=== PATIENT | male | born 1965 | race Caucasian/White ===

== ENCOUNTER 2018-06-11 17:07 | Emergency (ER) | payer SELFPAY ==
--- NOTE | 2018-06-11 18:30 | RAD REPORT ---
EXAM DESCRIPTION: CT - Stone Protocol - 06/11/2018 6:10 pm CLINICAL HISTORY: Fall, abdominal pain, left flank pain COMPARISON: None. TECHNIQUE: Axial [address] imaging of the abdomen and pelvis was performed without IV contrast. No IV contrast was given because of allergy, abnormal renal function, patient refusal or physician re quest. Oral contrast was given. All CT scans are performed using dose optimization technique as appropriate and may include automated exposure control or mA/KV adjustment according to patient size. FINDINGS: No suspicious findings in the lung bases. No pericardial thickening or effusion. The liver, spleen and pancreas show no suspicious findings on non-contrast imaging. Gallbladder is co ntracted. No biliary tree dilatation. No hydronephrosis or suspicious renal mass. No significant adrenal finding. Isodense renal masses an d pyelonephritis cannot be excluded in the absence of IV contrast. The urinary bladder is without sig nificant finding. No dilated bowel loops or bowel wall thickening. No free air, free fluid or inflammatory stranding. N o mass or bulky lymphadenopathy. Left inguinal hernia is present containing a loop of bowel. No edema or wall thickening. There is a bulging of the right inguinal canal with bowel present. No hernia def ect is seen. No suspicious bony findings. No significant bony abnormality. IMPRESSION: Non-contrast enhanced CT abdomen and pelvis imaging show no acute posttraumatic finding. Left inguinal hernia is present containing a loop of bowel. No acute finding suspected. Full assessment is limited is the absence of IV contrast.
[2018-06-11 18:54] LABS: Urine Bacteria <20 /HPF (NONE SEEN)
[2018-06-11 18:55] LABS: Urine Culture Reflex Order NOT NEEDED; Urine Mucus 1+ /HPF (NONE SEEN)
[2018-06-11 18:55] LABS: Urine Blood 2+ (NEG); Urine Glucose NEGATIVE (NEG); Urine Protein NEGATIVE (NEG); Urine Specific Gravity 1.025 (1.005-1.030); Urine pH 5.5 (5.0-7.0)
--- NOTE | 2018-06-11 20:40 | RAD REPORT ---
EXAM DESCRIPTION: CT - Abdomen Pelvis W Contrast - 06/11/2018 8:11 pm CLINICAL HISTORY: Fall, left-sided abdomen and flank pain COMPARISON: None. TECHNIQUE: Biphasic, helical CT imaging of the abdomen and pelvis was performed following 100 ml non -ionic IV contrast. Oral contrast was given. All CT scans are performed using dose optimization technique as appropriate and may include automated exposure control or mA/KV adjustment according to patient size. FINDINGS: No suspicious findings in the lung bases. No pericardial effusion. No acute lower rib frac ture. The liver, spleen, and pancreas show no suspicious findings. Gallbladder and biliary tree are also wi thout suspicious finding. Symmetric renal function is seen with no hydronephrosis or suspicious renal mass. No acute renal or p erinephric abnormality. No dilated bowel loops or bowel wall thickening. No free air, free fluid or inflammatory stranding. No change to the left inguinal hernia. There is a loop of small bowel present. No acute component wills spected. The urinary bladder is without significant finding. No adrenal abnormality. No hematoma or m ass in the soft tissues. No suspicious bony findings. IMPRESSION: Contrast enhanced CT abdomen and pelvis showing no significant or suspicious finding. N o new finding from prior study.
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
--- NOTE | 2018-06-11 21:22 | EDPHYS ---
Physician Documentation [facility] Name: Alexx De Leon Age: 53 yrs Sex: Male : 1965 Arrival Date: 06/11/2018 Time: 17:08 Bed 25 Private MD: None, None ED Physician Jm Lawrence HPI: 06/11 21:26 This 53 yrs old Male presents to ER via Ambulatory with complaints of Fall gs Injury. 21:26 Details of fall: The patient fell from a height, down approximately 8 stairs. Onset: gs The symptoms/episode began/occurred acutely, 2 day(s) ago. Associated injuries: The patient sustained injury to the abdomen, specifically the anterior aspect of left lateral abdomen and posterior aspect of left lateral abdomen. Severity of symptoms: At their worst the symptoms were moderate, in the emergency department the symptoms are unchanged. The patient has not experienced similar symptoms in the past. Historical: - Allergies: 17:14 No Known Allergies; hj - Home Meds: 17:14 None [Active]; hj - PMHx: 17:14 None; hj - PSHx: 17:14 None; hj - Immunization history:: Adult Immunizations up to date. - Social history:: Smoking status: Patient/guardian denies using tobacco, Patient/guardian denies using alcohol. - Ebola Screening: : Patient negative for fever greater than or equal to 101.5 degrees Fahrenheit, and additional compatible Ebola Virus Disease symptoms Patient denies exposure to infectious person Patient denies travel to an Ebola-affected area in the 21 days before illness onset. ROS: 21:26 All other systems are negative. gs Exam: 21:26 Head/Face: Normocephalic, atraumatic. Eyes: Pupils equal round and reactive to light, gs extra-ocular motions intact. Lids and lashes normal. Conjunctiva and sclera are non-icteric and not injected. Cornea within normal limits. Periorbital areas with no swelling, redness, or edema. ENT: Nares patent. No nasal discharge, no septal abnormalities noted. Tympanic membranes are normal and external auditory canals are clear. Oropharynx with no redness, swelling, or masses, exudates, or evidence of obstruction, uvula midline. Mucous membranes moist. Neck: Trachea midline, no thyromegaly or masses palpated, and no cervical lymphadenopathy. Supple, full range of motion without nuchal rigidity, or vertebral point tenderness. No Meningismus. Chest/axilla: Normal chest wall appearance and motion. Nontender with no deformity. No lesions are appreciated. Cardiovascular: Regular rate and rhythm with a normal S1 and S2. No gallops, murmurs, or rubs. Normal PMI, no JVD. No pulse deficits. Respiratory: Lungs have equal breath sounds bilaterally, clear to auscultation and percussion. No rales, rhonchi or wheezes noted. No increased work of breathing, no retractions or nasal flaring. Abdomen/GI: Soft, non-tender, with normal bowel sounds. No distension or tympany. No guarding or rebound. No evidence of tenderness throughout. Skin: Warm, dry with normal turgor. Normal color with no rashes, no lesions, and no evidence of cellulitis. MS/ Extremity: Pulses equal, no cyanosis. Neurovascular intact. Full, normal range of motion. Neuro: Awake and alert, GCS 15, oriented to person, place, time, and situation. Cranial nerves II-XII grossly intact. Motor strength 5/5 in all extremities. Sensory grossly intact. Cerebellar exam normal. Normal gait. 21:26 Constitutional: The patient appears alert, awake. 21:26 Back: CVA tenderness, that is moderate, is noted on the left, vertebral tenderness, is not appreciated. Vital Signs: 17:15 BP 124 / 90; Pulse 84; Resp 18; Temp 98.8(O); Pulse Ox 97% on R/A; Weight 68.04 kg; hj Height 5 ft. 10 in. (177.80 cm); Pain 7/10; 18:13 BP 131 / 89; Pulse 88; Resp 18; Pulse Ox 97% on R/A; aj1 21:07 BP 123 / 88 RA; Pulse 81 MON; Resp 16 S; Pulse Ox 97% on R/A; rv 17:15 Body Mass Index 21.52 (68.04 kg, 177.80 cm) MDM: 17:37 Patient medically screened. gs 21:26 Differential diagnosis: contusion, fracture, renal injury. Data reviewed: vital signs, gs nurses notes, lab test result(s), radiologic studies. Counseling: I had a detailed discussion with the patient and/or guardian regarding: the historical points, exam findings, and any diagnostic results supporting the discharge/admit diagnosis, lab results, radiology results, the need for outpatient follow up, a urologist. Response to treatment: the patient's symptoms have markedly improved after treatment. 06/11 18:30 Order name: Urine Microscopic Only; Complete Time: 18:58 iw 06/11 18:33 Order name: Urine Dipstick--Ancillary (enter results); Complete Time: 18:58 eb 06/11 17:38 Order name: CT Stone Protocol; Complete Time: 18:41 gs 06/11 18:59 Order name: Creatinine for Radiology; Complete Time: 20:26 gs 06/11 18:59 Order name: CT Abd/Pelvis - W/Contrast; Complete Time: 21:20 gs Administered Medications: No medications were administered Disposition: 06/11/18 21:21 Discharged to Home. Impression: Abdominal and pelvic pain, Hematuria. - Condition is Stable. - Discharge Instructions: Hematuria, Adult, Abdominal Pain, Adult, [id number]. - Medication Reconciliation Form, Thank You Letter, Antibiotic Education, Prescription Opioid Use form. - Follow up: Shayne Madison MD; When: 2 - 3 days; Reason: Re-evaluation by your physician. Signatures: Dispatcher [employer] EDMS Efraín Phelps RN RN Jm Lawrence MD MD Karely Henderson RN RN kr2 Corrections: (The following items were deleted from the chart) 21:32 21:21 06/11/2018 21:21 Discharged to Home. Impression: Abdominal and pelvic pain; kr2 Hematuria. Condition is Stable. Forms are Medication Reconciliation Form, Thank You Letter, Antibiotic Education, Prescription Opioid Use. Follow up: Shayne Madison; When: 2 - 3 days; Reason: Re-evaluation by your physician. gs
== END 2018-06-11 21:32 | disposition home or self-care (01) ==
LOC: ER 17:07
DX: R31.9 Hematuria, unspecified (principal); W10.9XXA Fall (on) (from) unspecified stairs and steps, initial encounter; Y93.9 Activity, unspecified; Y92.9 Unspecified place or not applicable
CPT/HCPCS: 36415; 74176; 74177; 76377; 81003; 81015; 99284; Q9967

== ENCOUNTER 2018-09-11 12:18 | Emergency (ER) | payer SELFPAY ==
[2018-09-11] MEDS ORDERED: NEOMY/POLY/HC 1% OTIC DROPS ONE (15:39)
--- NOTE | 2018-09-11 16:06 | ER ---
Nurse's Notes [facility] Name: Alexx De Leon Age: 53 yrs Sex: Male : 1965 Arrival Date: 09/11/2018 Time: 12:19 Bed 12 Private MD: Diagnosis: Impacted cerumen, bilateral Presentation: 09/11 12:33 Presenting complaint: Decreased hearing in left ear x 1 week. Denies pain/sinus hb congestion. Transition of care: patient was not received from another setting of care. Onset of symptoms was September 04, 2018. Risk Assessment: Do you want to hurt yourself or someone else? Patient reports no desire to harm self or others. Care prior to arrival: None. 12:33 Method Of Arrival: Ambulatory hb 12:33 Acuity: TERESA 4 hb 16:19 Initial Sepsis Screen: Does the patient meet any 2 criteria? No. Patient's initial aa5 sepsis screen is negative. Does the patient have a suspected source of infection? No. Patient's initial sepsis screen is negative. Historical: - Allergies: 12:34 No Known Allergies; hb - Home Meds: 12:34 None [Active]; hb - PMHx: 12:34 None; hb - PSHx: 12:34 None; hb - Immunization history:: Adult Immunizations up to date. - Social history:: Smoking status: Patient/guardian denies using tobacco. - Ebola Screening: : No symptoms or risks identified at this time. Screenin:06 Abuse screen: Denies threats or abuse. Denies injuries from another. Nutritional mg2 screening: No deficits noted. Tuberculosis screening: No symptoms or risk factors identified. Fall Risk None identified. Assessment: 16:17 General: Appears in no apparent distress. comfortable, Behavior is calm, cooperative. aa5 Pain: Complains of pain in left ear. Neuro: Level of Consciousness is awake, alert, obeys commands, Oriented to person, place, time, situation. Cardiovascular: Capillary refill < 3 seconds Patient's skin is warm and dry. Respiratory: Airway is patent Breath sounds are clear. GI: No signs and/or symptoms were reported involving the gastrointestinal system. : No signs and/or symptoms were reported regarding the genitourinary system. EENT: Ear canal w/ drainage noted from left ear w/ bleeding noted from left ear. Derm: Skin is intact, is healthy with good turgor, Skin is pink, warm \T\ dry. normal. Musculoskeletal: No deficits noted. Vital Signs: 12:33 BP 107 / 71; Pulse 61; Resp 16; Temp 97.6; Pulse Ox 100% on R/A; Pain 0/10; hb 16:18 BP 110 / 70; Pulse 70; Resp 18; Pulse Ox 100% on R/A; Pain 2/10; aa5 ED Course: 12:19 Patient arrived in ED. as 12:33 Triage completed. hb 12:34 Arm band placed on right wrist. hb 13:02 Scottie Cruz MD is Attending Physician. ma2 14:58 Vasu Mota, CHAZ is Primary Nurse. mg2 15:06 Cat Nino FNP-C is PHCP. snw 15:06 Ben Mejia MD is Attending Physician. snw 16:18 No provider procedures requiring assistance completed. Patient did not have IV access aa5 during this emergency room visit. Ear irrigation: Route left ear with Normal Saline amount 250ml Patient tolerated well. 16:19 Patient has correct armband on for positive identification. aa5 Administered Medications: 15:52 Drug: Cortisporin Drops 4 drops Route: Otic; Site: left ear; mg2 16:17 Follow up: Response: No adverse reaction aa5 Outcome: 16:06 Discharge ordered by . snw 16:18 Discharged to home ambulatory. aa5 16:18 Condition: stable 16:18 Discharge instructions given to patient, Instructed on discharge instructions, follow up and referral plans. Demonstrated understanding of instructions, follow-up care. 16:19 Patient left the ED. aa5 Signatures: Cat Nino FNP-C OCCUPATIONAL THERAPY ASSISTANT-Leah Mota as Yamileth Thapa RN RN aa5 Susan Marquez RN RN Scottie Cruz MD MD ma2 Vasu Mota, CHAZ RN mg2 Corrections: (The following items were deleted from the chart) 13:03 13:00 Yamileth Thapa RN is Primary Nurse. aa5 aa5
--- NOTE | 2018-09-11 16:06 | EDPHYS ---
Physician Documentation [facility] Name: Alexx De Leon Age: 53 yrs Sex: Male : 1965 Arrival Date: 09/11/2018 Time: 12:19 Bed 12 Private MD: ED Physician Ben Mejia HPI: 09/11 16:04 This 53 yrs old Male presents to ER via Ambulatory with complaints of Ear snw Pain. 16:04 The patient presents with a foreign body sensation, a fullness. The complaints affect snw the left ear. Onset: The symptoms/episode began/occurred gradually. Associated signs and symptoms: The patient has no apparent associated signs or symptoms. Severity of symptoms: At their worst the symptoms were moderate severe. It is unknown whether or not the patient has had similar symptoms in the past. The patient has not recently seen a physician. used a whole bottle of ear wax softener. Historical: - Allergies: 12:34 No Known Allergies; hb - Home Meds: 12:34 None [Active]; hb - PMHx: 12:34 None; hb - PSHx: 12:34 None; hb - Immunization history:: Adult Immunizations up to date. - Social history:: Smoking status: Patient/guardian denies using tobacco. - Ebola Screening: : No symptoms or risks identified at this time. ROS: 16:03 Constitutional: Negative for fever, chills, and weight loss, Eyes: Negative for injury, snw pain, redness, and discharge, Neck: Negative for injury, pain, and swelling, Cardiovascular: Negative for chest pain, palpitations, and edema, Respiratory: Negative for shortness of breath, cough, wheezing, and pleuritic chest pain, Abdomen/GI: Negative for abdominal pain, nausea, vomiting, diarrhea, and constipation, Back: Negative for injury and pain, : Negative for injury, bleeding, discharge, and swelling, MS/Extremity: Negative for injury and deformity, Skin: Negative for injury, rash, and discoloration, Neuro: Negative for headache, weakness, numbness, tingling, and seizure. 16:03 ENT: Positive for hearing loss, cerumen impaction. Exam: 16:03 Constitutional: This is a well developed, well nourished patient who is awake, alert, snw and in no acute distress. Head/Face: Normocephalic, atraumatic. Eyes: Pupils equal round and reactive to light, extra-ocular motions intact. Lids and lashes normal. Conjunctiva and sclera are non-icteric and not injected. Cornea within normal limits. Periorbital areas with no swelling, redness, or edema. Neck: Trachea midline, no thyromegaly or masses palpated, and no cervical lymphadenopathy. Supple, full range of motion without nuchal rigidity, or vertebral point tenderness. No Meningismus. Chest/axilla: Normal chest wall appearance and motion. Nontender with no deformity. No lesions are appreciated. Cardiovascular: Regular rate and rhythm with a normal S1 and S2. No gallops, murmurs, or rubs. Normal PMI, no JVD. No pulse deficits. Respiratory: Lungs have equal breath sounds bilaterally, clear to auscultation and percussion. No rales, rhonchi or wheezes noted. No increased work of breathing, no retractions or nasal flaring. Abdomen/GI: Soft, non-tender, with normal bowel sounds. No distension or tympany. No guarding or rebound. No evidence of tenderness throughout. Back: No spinal tenderness. No costovertebral tenderness. Full range of motion. Skin: Warm, dry with normal turgor. Normal color with no rashes, no lesions, and no evidence of cellulitis. MS/ Extremity: Pulses equal, no cyanosis. Neurovascular intact. Full, normal range of motion. Neuro: Awake and alert, GCS 15, oriented to person, place, time, and situation. Cranial nerves II-XII grossly intact. Motor strength 5/5 in all extremities. Sensory grossly intact. Cerebellar exam normal. Normal gait. Psych: Awake, alert, with orientation to person, place and time. Behavior, mood, and affect are within normal limits. 16:03 ENT: External ear(s): are unremarkable, Ear canal(s): cerumen impaction, that is moderate, that is severe, bilaterally, TM's: not visable, because of cerumen, Nose: is normal, Mouth: is normal, Posterior pharynx: no acute changes, Dental exam: fractured teeth are noted, specifically the upper right lateral incisor (#7) and upper right central incisor (#8), Voice: is normal. Vital Signs: 12:33 BP 107 / 71; Pulse 61; Resp 16; Temp 97.6; Pulse Ox 100% on R/A; Pain 0/10; hb 16:18 BP 110 / 70; Pulse 70; Resp 18; Pulse Ox 100% on R/A; Pain 2/10; aa5 MDM: 13:02 Patient medically screened. ma2 16:15 Data reviewed: vital signs, nurses notes. Data interpreted: Pulse oximetry: on room air snw is 100 %. Interpretation: normal. Counseling: I had a detailed discussion with the patient and/or guardian regarding: the historical points, exam findings, and any diagnostic results supporting the discharge/admit diagnosis. Response to treatment: the patient's symptoms have mildly improved after treatment. Special discussion: Based on the history and exam findings, there is no indication for further emergent testing or inpatient evaluation. I discussed with the patient/guardian the need to see the ENT specialist for further evaluation of the symptoms. I discussed with the patient/guardian the need to see the primary care provider for further evaluation of the symptoms. 09/11 15:23 Order name: [facility]. Order: H2O2 to left ear canal x 10min; Complete Time: 15:52 snw Administered Medications: 15:52 Drug: Cortisporin Drops 4 drops Route: Otic; Site: left ear; mg2 16:17 Follow up: Response: No adverse reaction aa5 Disposition: 18:02 Co-signature as Attending Physician, Ben Mejia MD. rn Disposition: 09/11/18 16:06 Discharged to Home. Impression: Impacted cerumen, bilateral. - Condition is Stable. - Discharge Instructions: Earwax Buildup, Adult, Ear Drops, Adult. - Medication Reconciliation Form, Thank You Letter, Antibiotic Education, Prescription Opioid Use form. - Follow up: Private Physician; When: 2 - 3 days; Reason: Recheck today's complaints, Continuance of care, Re-evaluation by your physician. Follow up: Emergency Department; When: As needed; Reason: Worsening of condition. Signatures: Cat Nino, SPECIAL EDUCATION ASSOCIATE-C SPECIAL EDUCATION ASSOCIATE-Csnw Ben Mejia MD MD rn Calderon, Audri, RN RN aa5 Susan Marquez RN RN Scottie Cruz MD MD ma2 Vasu Mota RN RN mg2 Corrections: (The following items were deleted from the chart) 16:19 16:06 09/11/2018 16:06 Discharged to Home. Impression: Impacted cerumen, bilateral. aa5 Condition is Stable. Forms are Medication Reconciliation Form, Thank You Letter, Antibiotic Education, Prescription Opioid Use. Follow up: Private Physician; When: 2 - 3 days; Reason: Recheck today's complaints, Continuance of care, Re-evaluation by your physician. Follow up: Emergency Department; When: As needed; Reason: Worsening of condition. snw
== END 2018-09-11 16:19 | disposition home or self-care (01) ==
LOC: ER 12:18
DX: H61.23 Impacted cerumen, bilateral (principal)
CPT/HCPCS: 99283

== ENCOUNTER 2021-08-01 15:14 | Emergency (ER) | payer SELFPAY ==
[2021-08-01] MEDS ORDERED: HYDROCODONE/APAP 10/325 TAB ONE (17:57)
[2021-08-01 18:16] LABS: Absolute Lymphocytes (CBC) 1.5 K/uL (0.7-4.9); Hematocrit 48.6 % (39.6-49.0); Lymphocytes % 21.3 % (15.3-44.8); RBC Red Blood Cell Count 5.18 M/uL (4.33-5.43)
[2021-08-01 18:28] LABS: ALT/SGPT 39 U/L (12-78); AST/SGOT 43 U/L (15-37); Albumin 4.2 g/dL (3.4-5.0); Alkaline Phosphatase 119 U/L (45-117); BUN Blood Urea Nitrogen 12 mg/dL (7-18); Bicarbonate 27 mmol/L (21-32); Glucose Level 98 mg/dL (74-106); Potassium 3.9 mmol/L (3.5-5.1); Protein, Total 7.7 g/dL (6.4-8.2); Sodium Level 138 mmol/L (136-145)
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
== END 2021-08-01 19:39 | disposition home or self-care (01) ==
LOC: ER 15:14
DX: S22.32XA Fracture of one rib, left side, initial encounter for closed fracture (principal); V18.4XXA Pedal cycle driver injured in noncollision transport accident in traffic accident, initial encounter; F17.210 Nicotine dependence, cigarettes, uncomplicated
CPT/HCPCS: 36415; 71260; 74177; 80053; 82565; 85025; 99283; Q9967

== ENCOUNTER 2022-03-23 19:05 | Emergency (ER) | payer SELFPAY ==
--- OUTSIDE RECORDS SUMMARY | 2022-03-23 19:12 | XMS REPORT | Continuity of Care Document ---
:1965 Author Organization [facility] t Address [address] [place] [address] Care Team Providers Name Role Phone Unavailable Unavailable Unavailable Problems This patient has no known problems. Allergies, Adverse Reactions, Alerts This patient has no known allergies or adverse reactions. Medications This patient has no known medications. Procedures This patient has no known procedures. Encounters Start End Encounter Admission Attending Care Care Encounter Source Date/Time Date/Time Type Type Clinicians Facility Department ID 2021-09-25 Outpatient [facility] [id number] [place] 05:06:55 [id number] [facility] Results This patient has no known results.
--- NOTE | 2022-03-23 19:47 | EDPHYS ---
Physician Documentation [facility] Name: Alexx De Leon Age: 57 yrs Sex: Male : 1965 Arrival Date: 03/23/2022 Time: 19:09 Bed Treatment Private MD: ED Physician Chinmay Palomo HPI: 03/23 19:43 This 57 yrs old Male presents to ER via Ambulatory with complaints of Rash. jmm 19:43 The rash is located on the body diffusely. Onset: The symptoms/episode began/occurred jmm gradually, 3 day(s) ago. Associated signs and symptoms: Pertinent positives: itching, Pertinent negatives: swelling of lips, swelling of throat, swelling of tongue. The patient has not experienced similar symptoms in the past. Historical: - Allergies: 19:41 No Known Allergies; ld1 - Home Meds: 19:41 None [Active]; ld1 - PMHx: 19:41 None; ld1 - PSHx: 19:41 None; ld1 - Immunization history:: Adult Immunizations up to date, Client reports having NOT received the Covid vaccine. - Social history:: Smoking status: Patient denies any tobacco usage or history of. Patient/guardian denies using alcohol. ROS: 19:43 Constitutional: Negative for fever, chills, and weight loss, Cardiovascular: Negative jmm for chest pain, palpitations, and edema, Respiratory: Negative for shortness of breath, cough, wheezing, and pleuritic chest pain. 19:43 Skin: Positive for rash. 19:43 All other systems are negative. Exam: 19:43 Constitutional: This is a well developed, well nourished patient who is awake, alert, jmm and in no acute distress. Head/Face: atraumatic. Eyes: EOMI, no conjunctival erythema appreciated ENT: Moist Mucus Membranes Neck: Trachea midline, Supple Chest/axilla: Normal chest wall appearance and motion. Cardiovascular: Regular rate and rhythm. No edema appreciated Respiratory: Normal respirations, no respiratory distress appreciated Abdomen/GI: Non distended Back: Normal ROM 19:43 Skin: Images from erythematous rash noted to the arms bilaterally, the back, abdomen, appears consistent with contact dermatitis. 19:43 Neuro: Orientation: is normal, Mentation: is normal, Memory: is normal. 19:43 Psych: Behavior/mood is pleasant, cooperative. Vital Signs: 19:41 BP 132 / 88; Pulse 76; Resp 18; Temp 98.6(TE); Pulse Ox 100% on R/A; Weight 77.11 kg; ld1 Height 5 ft. 9 in. (175.26 cm); Pain 0/10; 20:59 BP 126 / 79; Pulse 71; Resp 18; Pulse Ox 100% on R/A; ld1 19:41 Body Mass Index 25.10 (77.11 kg, 175.26 cm) ld1 MDM: 19:42 Patient medically screened. [facility] 19:44 Data reviewed: vital signs, nurses notes. Counseling: I had a detailed discussion with vazquez the patient and/or guardian regarding: the historical points, exam findings, and any diagnostic results supporting the discharge/admit diagnosis, the need for outpatient follow up, to return to the emergency department if symptoms worsen or persist or if there are any questions or concerns that arise at home. ED course: Patient viaPatient is alert nontoxic in appearance NAD. Physical exam findings consistent with a contact dermatitis. Follow-up with PCP and otherwise given strict return precautions. Patient understood and agrees plan of care. Administered Medications: 20:45 Drug: Decadron (dexamethasone) 10 mg Route: IM; Site: left deltoid; ld1 20:59 Follow up: Response: No adverse reaction ld1 Disposition: 03/24 09:20 Co-signature as Attending Physician, Chinmay Palomo DO I was immediately available on-site ms3 in the Emergency Department for consultation in the care of the patient.. Disposition Summary: 03/23/22 19:47 Discharge Ordered Location: Home [facility] Condition: Stable [facility] Diagnosis - Unspecified contact dermatitis, unspecified cause [facility] Followup: [facility] - With: Private Physician - When: 2 - 3 days - Reason: Recheck today's complaints, Continuance of care, Re-evaluation by your physician Discharge Instructions: - Discharge Summary Sheet [facility] - Contact Dermatitis [facility] Forms: - Medication Reconciliation Form [facility] - Thank You Letter [facility] - Antibiotic Education [facility] - Prescription Opioid Use [facility] Prescriptions: - Prednisone 20 mg Oral Tablet - take 3 tablets by ORAL route once daily 12 days Please take 3 tabs by mouth jmm daily for 3 days, then take 2 tabs by mouth daily for 3 days, then take 1 tab by mouth daily for 3 days, then take 1/2 tablet by mouth daily for 3 days; 20 tablet; Refills: 0, Product Selection Permitted - Hydroxyzine HCl 25 mg Oral Tablet - take 1 tablet by ORAL route every 6 hours As needed; 30 tablet; Refills: 0, vazquezm Product Selection Permitted Signatures: Kuldeep Bruce PA PA jmm Sims, Marcus, DO DO ms3 Lara Roberts RN RN ld1
--- NOTE | 2022-03-23 19:47 | ER ---
Nurse's Notes [facility] Name: Alexx De Leon Age: 57 yrs Sex: Male : 1965 Arrival Date: 03/23/2022 Time: 19:09 Bed Treatment Private MD: Diagnosis: Unspecified contact dermatitis, unspecified cause Presentation: 03/23 19:41 Chief complaint: Patient states: I think I have poison artur on my chest, back, arms and ld1 legs. Coronavirus screen: At this time, the client does not indicate any symptoms associated with coronavirus-19. Ebola Screen: No symptoms or risks identified at this time. Initial Sepsis Screen: Does the patient meet any 2 criteria? No. Patient's initial sepsis screen is negative. Does the patient have a suspected source of infection? No. Patient's initial sepsis screen is negative. Risk Assessment: Do you want to hurt yourself or someone else? Patient reports no desire to harm self or others. Onset of symptoms was March 23, 2022. 19:41 Method Of Arrival: Ambulatory ld1 19:41 Acuity: TERESA 4 ld1 Triage Assessment: 19:41 General: Appears in no apparent distress. comfortable, Behavior is calm, cooperative, ld1 appropriate for age. Pain: Denies pain. EENT: No signs and/or symptoms were reported regarding the EENT system. Neuro: Level of Consciousness is awake, alert, obeys commands, Oriented to person, place, time, situation. Cardiovascular: Capillary refill < 3 seconds Patient's skin is warm and dry. Respiratory: Airway is patent Respiratory effort is even, unlabored. GI: Abdomen is flat, non-distended. : No signs and/or symptoms were reported regarding the genitourinary system. Derm: Rash noted that is itchy, red, raised, on back, chest, right arm and left arm. Musculoskeletal: No signs and/or symptoms reported regarding the musculoskeletal system. Historical: - Allergies: 19:41 No Known Allergies; ld1 - Home Meds: 19:41 None [Active]; ld1 - PMHx: 19:41 None; ld1 - PSHx: 19:41 None; ld1 - Immunization history:: Adult Immunizations up to date, Client reports having NOT received the Covid vaccine. - Social history:: Smoking status: Patient denies any tobacco usage or history of. Patient/guardian denies using alcohol. Screenin:59 Abuse screen: Denies threats or abuse. Denies injuries from another. Nutritional ld1 screening: No deficits noted. Tuberculosis screening: No symptoms or risk factors identified. Fall Risk None identified. Assessment: 20:59 Reassessment: See triage assessment. ld1 Vital Signs: 19:41 BP 132 / 88; Pulse 76; Resp 18; Temp 98.6(TE); Pulse Ox 100% on R/A; Weight 77.11 kg; ld1 Height 5 ft. 9 in. (175.26 cm); Pain 0/10; 20:59 BP 126 / 79; Pulse 71; Resp 18; Pulse Ox 100% on R/A; ld1 19:41 Body Mass Index 25.10 (77.11 kg, 175.26 cm) ld1 ED Course: 19:09 Patient arrived in ED. dt4 19:40 Kuldeep Bruce PA is PHCP. andrea 19:40 Chinmay Palomo DO is Attending Physician. andrea 19:41 Triage completed. ld1 19:41 Arm band placed on right wrist. ld1 20:59 Patient has correct armband on for positive identification. Placed in gown. Bed in low ld1 position. Call light in reach. Side rails up X2. personnel monitor on. Pulse ox on. NIBP on. 20:59 No provider procedures requiring assistance completed. Patient did not have IV access ld1 during this emergency room visit. Administered Medications: 20:45 Drug: Decadron (dexamethasone) 10 mg Route: IM; Site: left deltoid; ld1 20:59 Follow up: Response: No adverse reaction ld1 Medication: 20:59 VIS not applicable for this client. ld1 Outcome: 19:47 Discharge ordered by . andrea 20:59 Discharged to home ambulatory. ld1 20:59 Condition: stable 20:59 Discharge instructions given to patient, Instructed on discharge instructions, follow up and referral plans. medication usage, Demonstrated understanding of instructions, follow-up care, medications, Prescriptions given X 2. 21:00 Patient left the ED. ld1 Signatures: Kuldeep Bruce PA PA jmm Dibbern, Lauren, RN RN ld1 Catalina Toledo dt4
[2022-03-23] MEDS ORDERED: dexAMETHasone 10 MG/ML VIAL ONE (21:02)
[2022-03-25 11:04] VITALS: TEMP 98.6; O2SAT 100
[2022-03-25 11:15] VITALS: BP 126/79
== END 2022-03-23 21:00 | disposition home or self-care (01) ==
LOC: ER 19:05
DX: L25.9 Unspecified contact dermatitis, unspecified cause (principal)
CPT/HCPCS: 96372; 99284; J1100

== ENCOUNTER 2022-05-11 14:26 | Emergency (ER) | payer SELFPAY ==
--- OUTSIDE RECORDS SUMMARY | 2022-05-11 14:28 | XMS REPORT | Continuity of Care Document ---
:1965 [address] [facility] t Address [address] [place] [address] Care Team Providers Name Role Phone Unavailable Unavailable Unavailable Problems This patient has no known problems. Allergies, Adverse Reactions, Alerts This patient has no known allergies or adverse reactions. Medications This patient has no known medications. Procedures This patient has no known procedures. Encounters Start End Encounter Admission Attending Care Care Encounter Source Date/Time Date/Time Type Type Clinicians Facility Department ID 2021-09-25 Outpatient [facility] [id number] [place] 05:06:55 -[id number] [facility] Results This patient has no known results.
--- NOTE | 2022-05-11 15:19 | EDPHYS ---
Physician Documentation [facility] Name: Alexx De Leon Age: 57 yrs Sex: Male : 1965 Arrival Date: 05/11/2022 Time: 14:33 Bed 9 Private MD: ED Physician Myron Murray HPI: 05/11 15:15 This 57 yrs old Male presents to ER via Ambulatory with complaints of Rash. pm1 15:15 The patient's rash thought to be caused by insect bites. The rash is located on the pm1 body diffusely. The rash can be described as urticarial. Onset: The symptoms/episode began/occurred 1 month(s) ago. Associated signs and symptoms: Pertinent positives: itching, Pertinent negatives: fever. Severity of symptoms: in the emergency department the symptoms are unchanged. Treatment given at home: None. The patient has experienced similar episodes in the past, several times. The patient has not recently seen a physician. Patient attributes to bed bug bites. Patient treated a little over a month ago for the same issue and the rash returned once he ran out of medication. He believes he is allergic to the bed bug bites. Historical: - Allergies: 14:44 No Known Allergies; ll1 - PMHx: 14:44 None; ll1 - PSHx: 14:44 None; ll1 - Immunization history:: Client reports receiving the 2nd dose of the Covid vaccine. - Social history:: Smoking status: Patient reports the use of cigarette tobacco products, denies chronic smoking, but will smoke occasionally. ROS: 15:15 Constitutional: Negative for fever, chills, and weight loss, Cardiovascular: Negative pm1 for chest pain, palpitations, and edema, Respiratory: Negative for shortness of breath, cough, wheezing, and pleuritic chest pain. 15:15 ENT: Negative for injury, pain, and discharge, Neuro: Negative for headache, weakness, numbness, tingling, and seizure. 15:15 Skin: Positive for rash, diffusely. 15:15 All other systems are negative. Exam: 15:15 Constitutional: This is a well developed, well nourished patient who is awake, alert, pm1 and in no acute distress. Head/Face: Normocephalic, atraumatic. 15:15 MS/ Extremity: Pulses equal, no cyanosis. Neurovascular intact. Full, normal range of motion. 15:15 Eyes: Exam is negative for acute changes, Periorbital structures: no acute changes, Extraocular movements: no acute changes, Conjunctiva: no acute changes, no injection. 15:15 ENT: Exam is negative for acute changes, Mouth: no acute changes, Lips: normal, moist, Oral mucosa: normal, pink and intact, moist. 15:15 Cardiovascular: Exam negative for acute changes, Rate: normal, Rhythm: regular, Pulses: no pulse deficits are appreciated. 15:15 Respiratory: Exam negative for acute changes, respiratory distress, shortness of breath. 15:15 Skin: Appearance: normal except for affected area, consistent with urticaria, and is diffusely located. Vital Signs: 14:45 BP 133 / 89; Pulse 72; Resp 16; Temp 98.5; Pulse Ox 100% ; Weight 70.31 kg; Height 5 ll1 ft. 10 in. (177.80 cm); Pain 0/10; 14:45 Body Mass Index 22.24 (70.31 kg, 177.80 cm) ll1 MDM: 15:09 Patient medically screened. pm1 15:18 Data reviewed: vital signs. Data interpreted: Pulse oximetry: on room air is 100 %. pm1 Interpretation: normal. Counseling: I had a detailed discussion with the patient and/or guardian regarding: the historical points, exam findings, and any diagnostic results supporting the discharge/admit diagnosis, the need for outpatient follow up, to return to the emergency department if symptoms worsen or persist or if there are any questions or concerns that arise at home. Administered Medications: 15:53 Drug: Decadron (dexamethasone) 10 mg Route: IM; Site: left deltoid; iw 15:53 Drug: Benadryl (diphenhydrAMINE) 25 mg Route: PO; iw Disposition: 17:56 Co-signature as Attending Physician, Myron Murray MD I agree with the assessment and kdr plan of care. Disposition Summary: 05/11/22 15:19 Discharge Ordered Location: Home pm1 Problem: new pm1 Symptoms: have improved pm1 Condition: Stable pm1 Diagnosis - Urticaria, unspecified pm1 Followup: pm1 - With: Emergency Department - When: As needed - Reason: Worsening of condition Followup: pm1 - With: Private Physician - When: 2 - 3 days - Reason: Recheck today's complaints, Continuance of care, Re-evaluation by your physician Discharge Instructions: - Discharge Summary Sheet pm1 - Hives pm1 - Bedbugs pm1 Forms: - Medication Reconciliation Form pm1 - Thank You Letter pm1 - Antibiotic Education pm1 - Prescription Opioid Use pm1 Prescriptions: - Benadryl 25 mg Oral Capsule - take 1 capsule by ORAL route every 6 hours As needed; 30 tablet; Refills: 0, pm1 Product Selection Permitted - Medrol (Ad) 4 mg Oral Tablets, Dose Pack - take 1 tablet by ORAL route as directed - follow package instructions; 1 pm1 packet; Refills: 0, Product Selection Permitted Signatures: Myron Murray MD MD kdr Leslie Prajapati RN RN iw Mo Issa NP ADVERTISING SUPERVISOR pm1 Meet Rodriguez RN RN ll1 Corrections: (The following items were deleted from the chart) 15:17 15:15 Onset: The symptoms/episode began/occurred 3 day(s) ago, pm1 pm1
--- NOTE | 2022-05-11 15:19 | ER ---
Nurse's Notes [facility] Name: Alexx De Leon Age: 57 yrs Sex: Male : 1965 Arrival Date: 05/11/2022 Time: 14:33 Bed 9 Private MD: Diagnosis: Urticaria, unspecified Presentation: 05/11 14:45 Chief complaint: Patient states: Rash to body with itching since Monday. No new ll1 foods/meds. Coronavirus screen: Vaccine status: Patient reports receiving the 2nd dose of the covid vaccine. Client denies travel out of the [place] in the last 14 days. At this time, the client does not indicate any symptoms associated with coronavirus-19. Ebola Screen: Patient denies travel to an Ebola-affected area in the 21 days before illness onset. Initial Sepsis Screen: Does the patient meet any 2 criteria? No. Patient's initial sepsis screen is negative. Does the patient have a suspected source of infection? Yes: Skin breakdown/wound. Risk Assessment: Do you want to hurt yourself or someone else? Patient reports no desire to harm self or others. Onset of symptoms was May 08, 2022. 14:45 Method Of Arrival: Ambulatory ll1 14:45 Acuity: TERESA 4 ll1 Triage Assessment: 14:46 General: Appears in no apparent distress. Behavior is calm, cooperative, appropriate ll1 for age. Pain: Denies pain. Derm: Rash noted that is red, raised, urticaria, Reports rash with itching all over. Historical: - Allergies: 14:44 No Known Allergies; ll1 - PMHx: 14:44 None; ll1 - PSHx: 14:44 None; ll1 - Immunization history:: Client reports receiving the 2nd dose of the Covid vaccine. - Social history:: Smoking status: Patient reports the use of cigarette tobacco products, denies chronic smoking, but will smoke occasionally. Vital Signs: 14:45 BP 133 / 89; Pulse 72; Resp 16; Temp 98.5; Pulse Ox 100% ; Weight 70.31 kg; Height 5 ll1 ft. 10 in. (177.80 cm); Pain 0/10; 14:45 Body Mass Index 22.24 (70.31 kg, 177.80 cm) ll1 ED Course: 14:33 Patient arrived in ED. mr 14:44 Arm band placed on. ll1 14:46 Triage completed. ll1 15:09 Mo Issa NP is PHCP. pm1 15:09 Myron Murray MD is Attending Physician. pm1 15:47 Leslie Prajapati, RN is Primary Nurse. iw Administered Medications: 15:53 Drug: Decadron (dexamethasone) 10 mg Route: IM; Site: left deltoid; iw 15:53 Drug: Benadryl (diphenhydrAMINE) 25 mg Route: PO; iw Outcome: 15:19 Discharge ordered by . pm1 16:04 Patient left the ED. iw Signatures: Debra Conklin mr Leslie rPajapati RN RN iw Mo Issa NP ROVING WEIGHT GAUGER pm1 Mete Rodriguez RN RN [facility]
[2022-05-11] MEDS ORDERED: DIPHENHYDRAMINE 25 MG TAB/CAP ONE (15:49)
[2022-05-11] MEDS ORDERED: dexAMETHasone 10 MG/ML VIAL ONE (15:49)
[2022-05-11 16:36] VITALS: BP 133/89; TEMP 98.5; O2SAT 100
== END 2022-05-11 16:04 | disposition home or self-care (01) ==
LOC: ER 14:26
DX: L50.9 Urticaria, unspecified (principal); F17.210 Nicotine dependence, cigarettes, uncomplicated
CPT/HCPCS: 96372; 99282; J1100

== ENCOUNTER 2023-05-27 14:16 | Emergency (ER) | payer OTHER, SELFPAY ==
--- OUTSIDE RECORDS SUMMARY | 2023-05-27 14:19 | XMS REPORT | Continuity of Care Document ---
:1965 Author Organization [facility] t Address [address] [place] [address] Care Team Providers Name Role Phone Unavailable Unavailable Unavailable Problems This patient has no known problems. Allergies, Adverse Reactions, Alerts This patient has no known allergies or adverse reactions. Medications This patient has no known medications. Procedures This patient has no known procedures. Encounters Start End Encounter Admission Attending Care Care Encounter Source Date/Time Date/Time Type Type Clinicians Facility Department ID 2023-02-16 2023-02-16 Outpatient [facility] [id number] [id number] Fredy 14:39:28 14:39:28 [id number] F Jaime 2023-02-15 2023-02-15 Outpatient [facility] [id number] Fredy 13:26:59 13:26:59 [id number] F Jaime Results This patient has no known results.
[2023-05-27] MEDS ORDERED: NA CHLORIDE 0.9% 1,000 ML ONE (15:29)
[2023-05-27 15:38] LABS: Absolute Lymphocytes (CBC) 1.8 K/uL (0.7-4.9); Hematocrit 47.4 % (39.6-49.0); Lymphocytes % 23.5 % (15.3-44.8); Platelets 242 thou/uL (152-406); RBC Red Blood Cell Count 4.93 M/uL (4.33-5.43)
[2023-05-27 15:46] LABS: Potassium 3.4 mEq/L (3.5-5.1)
--- NOTE | 2023-05-27 17:50 | RAD REPORT ---
EXAM DESCRIPTION: CTAbdomen Pelvis W Contrast - 05/27/2023 5:42 pm CLINICAL HISTORY: Abdominal pain. CONSTIPATION COMPARISON: Abdomen Pelvis W Contrast dated 06/11/2018; Chest Abdomen Pelvis W Cont dated 2 TECHNIQUE: Biphasic CT imaging of the abdomen and pelvis was performed with 100 ml non-ionic IV cont rast. All CT scans are performed using dose optimization technique as appropriate and may include automated exposure control or mA/KV adjustment according to patient size. FINDINGS: The lung bases are clear.Small hiatal hernia. The liver, spleen, pancreas, adrenal glands and kidneys are within normal limits. No bowel obstruction, free air, free fluid or abscess. Mild colonic diverticulosis without diverticul itis. Small left inguinal hernia contains a small section of the sigmoid colon and patent without inc arceration. The appendix is not identified as a discrete structure, however, no secondary findings of appendicitis are identified. No evidence of significant lymphadenopathy. No suspicious bony findings. IMPRESSION: No acute intra-abdominal or pelvic finding. Colonic diverticulosis. Small left inguinal hernia containing fat and a small section of the sigmoid colon without incarcerat ion.
--- NOTE | 2023-05-27 17:53 | EDPHYS ---
Physician Documentation [facility] Name: Alexx De Leon Age: 58 yrs Sex: Male : 1965 Arrival Date: 05/27/2023 Time: 14:16 Bed 16 Private MD: ED Physician Jarred Penn HPI: 05/27 15:10 This 58 yrs old Male presents to ER via Ambulatory with complaints of Urinary Problem. kb 15:10 Pt is a 58 year old male who presents for constipation that started one week ago. kb States he has been taking laxatives with little relief. States he cannot eat because his bowels feel full. Believes he has an infection because he saw pus in his stool. Denies nausea, vomiting, abd pain, and fever. Historical: - Allergies: 14:39 No Known Allergies; ko1 - Home Meds: 14:39 None [Active]; ko1 - PMHx: 14:39 None; ko1 - PSHx: 14:39 None; ko1 - Immunization history:: Adult Immunizations unknown. - Social history:: Smoking status: Patient reports the use of cigarette tobacco products, denies chronic smoking, but will smoke occasionally. ROS: 15:10 Constitutional: Negative for fever, chills, and weight loss, kb 15:10 Abdomen/GI: Positive for constipation, Negative for abdominal pain, nausea and vomiting, 15:10 All other systems are negative, Exam: 15:10 Constitutional: This is a well developed, well nourished patient who is awake, alert, kb and in no acute distress. Head/Face: Normocephalic, atraumatic. ENT: Moist Mucous membranes Cardiovascular: Regular rate Respiratory: Respirations even and unlabored. No increased work of breathing. Talking in full sentences Abdomen/GI: Soft, non-tender. No distention Skin: Warm, dry with normal turgor. Normal color. MS/ Extremity: Pulses equal, no cyanosis. Neurovascular intact. Full, normal range of motion. Neuro: Awake and alert, GCS 15, oriented to person, place, time, and situation. Moves all extremities. Normal gait. Vital Signs: 14:36 BP 127 / 84; Pulse 62; Resp 16; Temp 98.1; Pulse Ox 99% ; ko1 18:18 BP 139 / 84; Pulse 76; Resp 18; Pulse Ox 100% on R/A; cm10 MDM: 15:05 Patient medically screened. kb 15:13 Differential diagnosis: bowel obstruction, diverticulitis, non-specific abd pain, kb constipation, colitis. Data reviewed: vital signs, nurses notes. 17:51 Counseling: I had a detailed discussion with the patient and/or guardian regarding the kb historical points, exam findings, and any diagnostic results supporting the discharge/admit diagnosis, lab results, radiology results, the need for outpatient follow up, a family practitioner, to return to the emergency department if symptoms worsen or persist or if there are any questions or concerns that arise at home. 05/27 15:09 Order name: CBC with Diff; Complete Time: 15:57 kb 05/27 15:09 Order name: Basic Metabolic Panel; Complete Time: 15:57 kb 05/27 15:09 Order name: CT Abd/Pelvis - PO and IV Contrast; Complete Time: 17:51 kb 05/27 15:09 Order name: IV Start; Complete Time: 15:30 kb Administered Medications: 15:30 Drug: NS 0.9% IV 1000 ml IV at 1000 ml once Route: IV; Rate: 1000 ml; Site: left cm10 forearm; 16:34 Follow up: Response: No adverse reaction; IV Status: Completed infusion; IV Intake: cm10 1000ml 18:05 Drug: Dulcolax PO Delayed Release Tablet 5 mg PO once Route: PO; cm10 18:18 Follow up: Response: No adverse reaction cm10 Disposition Summary: 05/27/23 17:52 Discharge Ordered Notes: Location: Home kb Condition: Stable kb Diagnosis - Constipation, unspecified kb Followup: kb - With: Emergency Department - When: As needed - Reason: Worsening of condition Followup: kb - With: Private Physician - When: 2 - 3 days - Reason: Recheck today's complaints, Continuance of care, Re-evaluation by your physician Discharge Instructions: - Discharge Summary Sheet kb - Constipation, Adult, [id number] kb Forms: - Medication Reconciliation Form kb - Thank You Letter kb - Antibiotic Education kb - Prescription Opioid Use kb - Patient Portal Instructions kb - Leadership Thank You Letter kb Signatures: Dispatcher [employer] Bonny Munroe, WILFRED MARIA-Laure Jc RN RN ko1 Angeles Levin RN RN cm10
--- NOTE | 2023-05-27 17:53 | ER ---
Nurse's Notes [facility] Name: Alexx De Leon Age: 58 yrs Sex: Male : 1965 Arrival Date: 05/27/2023 Time: 14:16 Bed 16 Private MD: Diagnosis: Constipation, unspecified Presentation: 05/27 14:36 Chief complaint: Patient states: constipated, hasnt had productive bowel movement in a ko1 week. Think I have an infection. Coronavirus screen: At this time, the client does not indicate any symptoms associated with coronavirus-19. Ebola Screen: No symptoms or risks identified at this time. Initial Sepsis Screen: Does the patient meet any 2 criteria? No. Patient's initial sepsis screen is negative. Does the patient have a suspected source of infection? No. Patient's initial sepsis screen is negative. Risk Assessment: Do you want to hurt yourself or someone else? Patient reports no desire to harm self or others. Onset of symptoms is unknown. 14:36 Method Of Arrival: Ambulatory ko1 14:36 Acuity: TERESA 4 ko1 15:57 Acuity: TERESA 3 cm10 Triage Assessment: 14:39 General: Appears in no apparent distress. uncomfortable, Behavior is calm, cooperative, ko1 appropriate for age. Pain: Complains of pain in abdomen. Historical: - Allergies: 14:39 No Known Allergies; ko1 - Home Meds: 14:39 None [Active]; ko1 - PMHx: 14:39 None; ko1 - PSHx: 14:39 None; ko1 - Immunization history:: Adult Immunizations unknown. - Social history:: Smoking status: Patient reports the use of cigarette tobacco products, denies chronic smoking, but will smoke occasionally. Screenin:31 [facility] ED Fall Risk Assessment (Adult) History of falling in the last 3 months, cm10 including since admission No falls in past 3 months (0 pts) Confusion or Disorientation No (0 pts) Intoxicated or Sedated No (0 pts) Impaired Gait No (0 pts) Mobility Assist Device Used No (0 pt) Altered Elimination No (0 pt) Score/Fall Risk Level 0 - 2 = Low Risk Oriented to surroundings, Maintained a safe environment, Hourly rounding (assess needs \T\ fall precautionary measures) done. Abuse screen: Denies threats or abuse. Denies injuries from another. Nutritional screening: No deficits noted. Tuberculosis screening: No symptoms or risk factors identified. Assessment: 15:31 General: Appears in no apparent distress. comfortable, Behavior is. Neuro: No deficits cm10 noted. Level of Consciousness is awake, alert, obeys commands, Oriented to person, place, time, situation. Cardiovascular: No deficits noted. Patient's skin is warm and dry. Respiratory: No deficits noted. Airway is patent Respiratory effort is even, unlabored, Respiratory pattern is regular, symmetrical. GI: Abdomen is flat, Reports constipation, pus coming out of rectum. Derm: No deficits noted. Skin is intact, Skin is pink, warm \T\ dry. Musculoskeletal: Range of motion: intact in all extremities. 15:52 Reassessment: Pt completed PO contrast at this time. CT made aware. cm10 16:35 Reassessment: No changes from previously documented assessment. Patient and/or family cm10 updated on plan of care and expected duration. Pain level reassessed. Patient is alert, oriented x 3, equal unlabored respirations, skin warm/dry/pink. Vital Signs: 14:36 BP 127 / 84; Pulse 62; Resp 16; Temp 98.1; Pulse Ox 99% ; ko1 18:18 BP 139 / 84; Pulse 76; Resp 18; Pulse Ox 100% on R/A; cm10 ED Course: 14:31 Patient arrived in ED. mg5 14:34 Jarred Penn MD is Attending Physician. sp3 14:39 Triage completed. ko1 14:39 Arm band placed on right wrist. Patient notified of wait time. ko1 15:05 Bonny Catherine FNP-C is PHCP. kb 15:30 Basic Metabolic Panel Sent. cm10 15:30 CBC with Diff Sent. cm10 15:30 Initial lab(s) drawn, by me, sent to lab. Inserted saline lock: 20 gauge in left cm10 forearm, using aseptic technique. Blood collected. 15:32 Patient has correct armband on for positive identification. Placed in gown. Bed in low cm10 position. Call light in reach. Side rails up X 1. Provided Education on: ER process and procedures. . Pulse ox on. NIBP on. Warm blanket given. 15:36 Oral contrast given. mw3 15:52 Angeles Levin, RN is Primary Nurse. cm10 15:54 Oral contrast reported to be complete. mw3 17:44 CT Abd/Pelvis - PO and IV Contrast In Process Unspecified. EDMS 18:18 No provider procedures requiring assistance completed. IV discontinued, intact, cm10 bleeding controlled, No redness/swelling at site. Pressure dressing applied. Administered Medications: 15:30 Drug: NS 0.9% IV 1000 ml IV at 1000 ml once Route: IV; Rate: 1000 ml; Site: left cm10 forearm; 16:34 Follow up: Response: No adverse reaction; IV Status: Completed infusion; IV Intake: cm10 1000ml 18:05 Drug: Dulcolax PO Delayed Release Tablet 5 mg PO once Route: PO; cm10 18:18 Follow up: Response: No adverse reaction cm10 Medication: 15:31 VIS not applicable for this client. cm10 Intake: 16:34 IV: 1000ml; Total: 1000ml. cm10 Outcome: 17:52 Discharge ordered by . kb 18:19 Discharged to home ambulatory, cm10 18:19 Condition: good 18:19 Discharge instructions given to patient, Instructed on discharge instructions, follow up and referral plans. Demonstrated understanding of instructions, follow-up care, 18:19 Patient left the ED. cm10 Signatures: Dispatcher [employer] EDMS Bonny Catherine, [employer] LOSS ASSESSOR-Roseline Steiner mw3 Jarred Penn MD MD sp3 Laure Nunez, RN RN koAngeles Diamond RN RN cm10 Jagruti Rolon mg5
[2023-05-27] MEDS ORDERED: BISACODYL E.C. 5 MG TAB PO ONE (18:12)
[2023-05-27 18:58] VITALS: TEMP 98.1
[2023-05-27 18:59] VITALS: BP 139/84; O2SAT 100
== END 2023-05-27 18:19 | disposition home or self-care (01) ==
LOC: ER 14:16
DX: K59.00 Constipation, unspecified (principal)
CPT/HCPCS: 85025; 80048; 36415; 74177; 96360; 99284; Q9967; J7030

== ENCOUNTER → 2023-06-28 | Emergency (ER) | payer OTHER ==
--- OUTSIDE RECORDS SUMMARY | 2023-06-28 04:42 | XMS REPORT | Continuity of Care Document ---
Author Name Unknown Address [address] [place] [address] [address] [facility] Address [address] [place] [address] 1 [address] [place] [address] Care Team Providers Care Compliance Lead Name Role Phone Unavailable Unavailable Unavailable Encounters Start Date/Time End Date/Time Encounter Type Admission Type Attending Clinicians Care Facility Care Department Encounter ID Source 2023-06-19 09:11:10 2023-06-19 09:11:10 Outpatient [facility] [id number] Fredy Sandoval 2023-02-16 14:39:28 2023-02-16 14:39:28 Outpatient [facility] [id number] Fredy Sandoval 2023-02-15 13:26:59 2023-02-15 13:26:59 Outpatient [facility] [id number] Fredy Sandoval
--- NOTE | 2023-06-28 05:51 | EDPHYS ---
Physician Documentation [facility] Name: Alexx De Leon Age: 58 yrs Sex: Male : 1965 Arrival Date: 06/28/2023 Time: 04:37 Bed 13 Private MD: ED Physician Brown Ward HPI: 06/28 04:52 This 58 yrs old Male presents to ER via Unassigned with complaints of sp4 Constipation. 05:06 58-year-old male with history of chronic constipation presents to the emergency room sp4 with complaint of the rectal discomfort and constipation. At home patient has consumed Dulcolax, MiraLAX, and also used hemorrhoidal cream for discomfort in the anus. Patient states that her pain is on the lower pelvis and the rectum. Patient was evaluated here on 06/10/2023 , he was given a CT scan that revealed no acute intra-abdominal process and no constipation.. . Historical: - Allergies: 04:59 No Known Allergies; kl - Home Meds: 04:59 Dulcolax Rectal 1 suppository [Active]; Miralax 17 gram/dose Oral powder [Active]; kl - PMHx: 04:59 chronic constipation; kl - PSHx: 04:59 None; kl - Immunization history:: Adult Immunizations not up to date. - Social history:: Smoking status: Reported history of juuling and/or vaping. - Family history:: not pertinent. ROS: 05:06 Constitutional: Negative for fever, chills, and weight loss, positive constipation , sp4 positive rectal discomfort 05:06 All other systems are negative, Exam: 05:06 Constitutional: This is a well developed, well nourished patient who is awake, alert, sp4 and in no acute distress. Head/Face: Normocephalic, atraumatic. Eyes: Pupils equal round and reactive to light, extra-ocular motions intact. Lids and lashes normal. Conjunctiva and sclera are not injected. Cornea within normal limits. Periorbital areas with no swelling, redness, or edema. ENT: Nares patent. No nasal discharge, no septal abnormalities noted. Tympanic membranes are normal and external auditory canals are clear. Oropharynx with no redness, swelling, or masses, exudates, or evidence of obstruction, uvula midline. Mucous membranes moist. Neck: Trachea midline, no thyromegaly or masses palpated, and no cervical lymphadenopathy. Supple, full range of motion without nuchal rigidity, or vertebral point tenderness. Chest/axilla: Normal chest wall appearance and motion. Nontender with no deformity. No lesions are appreciated. Cardiovascular: Regular rate and rhythm with a normal S1 and S2. No gallops, murmurs, or rubs. Normal PMI, no JVD. No pulse deficits. Respiratory: Lungs have equal breath sounds bilaterally, clear to auscultation and percussion. No rales, rhonchi or wheezes noted. No increased work of breathing, no retractions or nasal flaring. Abdomen/GI: Soft, non-tender, with normal bowel sounds. No distension or tympany. No guarding or rebound. No evidence of tenderness throughout. Back: No spinal tenderness. No costovertebral tenderness. Male : Normal genitalia with no discharge or lesions. Skin: Warm, dry with normal turgor. Normal color with no rashes, no lesions, and no evidence of cellulitis. MS/ Extremity: Pulses equal, no cyanosis. Neurovascular intact. Full, normal range of motion. Neuro: Awake and alert, GCS 15, oriented to person, place, time, and situation. Cranial nerves II-XII grossly intact. Motor strength 5/5 in all extremities. Sensory grossly intact. Psych: Awake, alert, with orientation to person, place and time. Behavior, mood, and affect are within normal limits 05:48 Abdomen/GI: Rectal exam reveals moderate external hemorrhoids that are painful sp4 nonbleeding. This is probably what contributes to pain in the rectal discomfort. Patient is not constipated not impacted by exam. I will refer patient on to Dr. Jansen for evaluation for hemorrhoidectomy. , Vital Signs: 04:58 BP 131 / 84; Pulse 59; Resp 18; Pulse Ox 99% on R/A; Weight 57.61 kg (R); Height 5 ft. kl 10 in. ; Pain 0/10; 06:01 BP 130 / 81; Pulse 65; Resp 17 S; Pulse Ox 99% on R/A; ha1 04:58 Body Mass Index 18.22 (57.61 kg, 177.8 cm) kl 04:58 Pain Scale: Adult kl Daniel Coma Score: 05:48 Eye Response: spontaneous(4). Motor Response: obeys commands(6). Verbal Response: sp4 oriented(5). Total: 15. MDM: 04:56 Patient medically screened. sp4 05:48 Differential Diagnosis altered mental status, sepsis, flu. Data reviewed: vital signs, sp4 nurses notes. Data reviewed: radiologic studies, plain films. ED course: Evaluation of the hemorrhoidectomy -patient will be referred to general surgeon Dr. Jnasen . Advised patient to stop using laxative. 06/28 05:08 Order name: Abdomen Acute Series XRAY sp4 Administered Medications: No medications were administered Disposition Summary: 06/28/23 05:51 Discharge Ordered Notes: Please see Dr. Jansen for evaluation for hemorrhoid surgery Location: Home sp4 Problem: new sp4 Symptoms: have improved sp4 Condition: Stable sp4 Diagnosis - Unspecified hemorrhoids sp4 - External hemorrhoids, rectal pain secondary to hemorrhoids sp4 Followup: sp4 - With: Scot Janesn MD - When: 7 - 10 days - Reason: Recheck today's complaints Discharge Instructions: - Discharge Summary Sheet sp4 - Hemorrhoids, [id number] sp4 Forms: - Work release form mr - Patient Portal Instructions sp4 Signatures: Dispatcher [employer] Ny Blandon RN RN Brown Solano MD MD sp4
--- NOTE | 2023-06-28 05:51 | ER ---
Nurse's Notes [facility] Name: Alexx De Leon Age: 58 yrs Sex: Male : 1965 Arrival Date: 06/28/2023 Time: 04:37 Bed 13 Private MD: Diagnosis: Unspecified hemorrhoids;External hemorrhoids, rectal pain secondary to hemorrhoids Presentation: 06/28 04:58 Chief complaint: Patient states: constipation x 1 month no improvement with over the kl counter medications seen here 06/10 for same complaint. Coronavirus screen: Vaccine status: Patient reports receiving the 2nd dose of the covid vaccine. Ebola Screen: Patient negative for fever greater than or equal to 101.5 degrees Fahrenheit, and additional compatible Ebola Virus Disease symptoms. Initial Sepsis Screen: Does the patient meet any 2 criteria? No. Patient's initial sepsis screen is negative. Does the patient have a suspected source of infection?. Risk Assessment: Do you want to hurt yourself or someone else? Patient reports no desire to harm self or others. 04:58 Method Of Arrival: Ambulatory 04:58 Acuity: TERESA 4 06:01 Onset of symptoms was June 01, 2023. ha1 Triage Assessment: 05:00 General: Appears in no apparent distress. comfortable, Behavior is calm, cooperative. kl Pain: Denies pain. GI: Reports bloating, constipation. Historical: - Allergies: 04:59 No Known Allergies; kl - Home Meds: 04:59 Dulcolax Rectal 1 suppository [Active]; Miralax 17 gram/dose Oral powder [Active]; - PMHx: 04:59 chronic constipation; - PSHx: 04:59 None; kl - Immunization history:: Adult Immunizations not up to date. - Social history:: Smoking status: Reported history of juuling and/or vaping. - Family history:: not pertinent. Screenin:58 [facility] ED Fall Risk Assessment (Adult) History of falling in the last 3 months, ha1 including since admission Yes- single mechanical fall (1 pt) Confusion or Disorientation No (0 pts) Intoxicated or Sedated No (0 pts) Impaired Gait Yes (1 pt) Mobility Assist Device Used Yes (1 pt) Altered Elimination No (0 pt) Score/Fall Risk Level 0 - 2 = Low Risk Oriented to surroundings, Maintained a safe environment, Educated pt \T\ family on fall prevention, incl call for assistance when getting out of bed, Hourly rounding (assess needs \T\ fall precautionary measures) done. Abuse screen: Denies threats or abuse. Denies injuries from another. Nutritional screening: No deficits noted. Tuberculosis screening: No symptoms or risk factors identified. Assessment: 05:01 General: Appears comfortable, Behavior is calm, cooperative. Pain: Complains of pain in ha1 abdomen Pain does not radiate. Pain currently is 7 out of 10 on a pain scale. Quality of pain is described as crampy. Neuro: Level of Consciousness is awake, alert, obeys commands, Oriented to person, place, time, situation. Cardiovascular: Patient's skin is warm and dry. Respiratory: Airway is patent Respiratory effort is even, unlabored, Respiratory pattern is regular, symmetrical. GI: Abdomen is flat, non-distended, Bowel sounds present X 4 quads. Abd is soft and non tender. GI: Reports constipation. Derm: Skin is moist, Skin is normal. Vital Signs: 04:58 BP 131 / 84; Pulse 59; Resp 18; Pulse Ox 99% on R/A; Weight 57.61 kg (R); Height 5 ft. kl 10 in. ; Pain 0/10; 06:01 BP 130 / 81; Pulse 65; Resp 17 S; Pulse Ox 99% on R/A; ha1 04:58 Body Mass Index 18.22 (57.61 kg, 177.8 cm) kl 04:58 Pain Scale: Adult kl Daniel Coma Score: 05:48 Eye Response: spontaneous(4). Motor Response: obeys commands(6). Verbal Response: sp4 oriented(5). Total: 15. ED Course: 04:45 Patient arrived in ED. gm2 04:52 Brown Ward MD is Attending Physician. sp4 04:59 Triage completed. kl 05:01 Arm band placed on right wrist. ha1 05:01 Allergy band placed. Placed in gown. Bed in low position. Call light in reach. Side ha1 rails up X 1. 05:17 Akila Bowen RN is Primary Nurse. ha1 05:32 Abdomen Acute Series XRAY In Process Unspecified. EDMS 05:50 Scot Jansen MD is Referral Physician. sp4 05:59 Provided Education on: Following up with . ha1 05:59 No provider procedures requiring assistance completed. Patient did not have IV access ha1 during this emergency room visit. Administered Medications: No medications were administered Medication: 05:59 VIS not applicable for this client. ha1 Outcome: 05:51 Discharge ordered by . sp4 05:59 Discharged to home ambulatory, ha1 05:59 Condition: stable 05:59 Discharge instructions given to patient, Instructed on discharge instructions, follow up and referral plans. Demonstrated understanding of instructions, follow-up care, 06:02 Patient left the ED. ha1 Signatures: Dispatcher [employer] EDMS Ny Rodriguez RN RN kl Ayala, Heidy, RN RN ha1 Brown Ward MD MD sp4 America Sorensen 2
[2023-06-28 08:54] VITALS: O2SAT 99
[2023-06-28 09:02] VITALS: BP 130/81
--- NOTE | 2023-06-28 11:59 | RAD REPORT ---
EXAM DESCRIPTION: RAD - Abdomen Acute Series - 06/28/2023 5:30 am CLINICAL HISTORY: The patient is 58 years old and is Male; ABD PAIN TECHNIQUE: Three views total including of the chest, frontal view of the abdomen/pelvis and upright or decubitus view of the abdomen. COMPARISON: No relevant prior studies available. FINDINGS: Lungs: Hyperinflation. No fluid overload or consolidation. Left lung calcified granuloma . Pleural space: Unremarkable. No pneumothorax. Heart: Unremarkable. No cardiomegaly. Mediastinum: Unremarkable. Normal mediastinal contour. Intraperitoneal space: No free air. Gastrointestinal tract: No dilated bowel loops. Bones/joints: No acute fracture visualized. Mild lumbar scoliosis. IMPRESSION: No acute findings in the chest, abdomen or pelvis. Electronically signed by: Wendie Mckee MD 06/28/2023 06:13 AM MILL FEEDER Due to temporary technical issues with the PACS/Fluency reporting system, reports are being signed by the in house radiologist without review as a courtesy to ensure prompt reporting. The interpreting r adiologist is fully responsible for the content of the report.
== END ==
LOC: ER 04:37
DX: K64.9 Unspecified hemorrhoids (principal); K64.4 Residual hemorrhoidal skin tags
CPT/HCPCS: 74022; 99282

== ENCOUNTER 2023-07-21 06:30 | Day surgery (SDC) | payer OTHER ==
[2023-07-20 08:45] LABS: Potassium 3.5 mEq/L (3.5-5.1)
[2023-07-21] MEDS ORDERED: Ringers Lactate 1,000 ML IV ONE (06:41)
[2023-07-21] MEDS ORDERED: propofoL 200 MG/20 ML VIAL IV ONE (07:20)
[2023-07-21] MEDS ORDERED: LIDOCAINE 1% MPF 5 ML VIAL ONE (07:20)
[2023-07-21 09:45] VITALS: O2SAT 100
[2023-07-21 14:39] VITALS: BP 120/69; TEMP 97
--- NOTE | 2023-07-24 17:09 | EKG ---
Test Date: 2023-07-20 Test Time: 09:06:20 Balance Weigher: SUE MEASUREMENT RESULTS: Intervals: Rate: 57 PA: 148 QRSD: 86 QT: 420 QTc: 408 [place]: P: 24 PA: 148 QRS: 26 T: 59 INTERPRETIVE STATEMENTS: Sinus bradycardia Otherwise normal ECG Compared to ECG 06/01/2013 12:15:14 Sinus rhythm no longer present Electronically Signed On 07-24-23 16:56:49 DIRECTOR SUPPLIER QUALITY by Darion Mchugh
== END 2023-07-21 12:21 | disposition home or self-care (01) ==
LOC: OR 06:30
PROVIDERS: ATTEND Surgery
PROC: 0DBL8ZX Excision of Transverse Colon, Via Natural or Artificial Opening Endoscopic, Diagnostic (ICD-10-PCS; 2023-07-21)
PROC: 0DBP8ZX Excision of Rectum, Via Natural or Artificial Opening Endoscopic, Diagnostic (ICD-10-PCS; 2023-07-21)
PROC: 0DBK8ZX Excision of Ascending Colon, Via Natural or Artificial Opening Endoscopic, Diagnostic (ICD-10-PCS; principal; 2023-07-21 09:15)
DX: K62.5 Hemorrhage of anus and rectum (principal); N40.0 Benign prostatic hyperplasia without lower urinary tract symptoms; D12.3 Benign neoplasm of transverse colon; K52.9 Noninfective gastroenteritis and colitis, unspecified; K64.8 Other hemorrhoids; K57.30 Diverticulosis of large intestine without perforation or abscess without bleeding
CPT/HCPCS: 93005; 80048; 36415; 88305; 45385; J2704; J2001; J7120

== ENCOUNTER 2023-08-25 08:30 | Day surgery (SDC) | payer OTHER ==
[2023-08-25 08:41] LABS: Lymphocytes % 12.7 % (15.3-44.8); MCV 94.2 fL (80-100); MPV 8.5 fL (7.6-11.3); Platelets 210 thou/uL (152-406); RBC Red Blood Cell Count 5.42 M/uL (4.33-5.43)
[2023-08-25] MEDS: Ringers Lactate 1,000 ML IV ONE (08:45)
[2023-08-25 08:51] LABS: Potassium 4.1 mEq/L (3.5-5.1)
[2023-08-25] MEDS ORDERED: propofoL 200 MG/20 ML VIAL IV ONE (09:38)
[2023-08-25] MEDS ORDERED: ONDANSETRON 4 MG/2 ML VIAL ONE (09:38)
[2023-08-25] MEDS ORDERED: KETOROLAC 30 MG/ML INJ ONE (09:38)
[2023-08-25] MEDS ORDERED: dexAMETHasone 10 MG/ML VIAL ONE (09:38)
[2023-08-25] MEDS ORDERED: MIDAZOLAM HCL 2 MG/2 ML INJ ONE (09:38)
[2023-08-25] MEDS ORDERED: ROCURONIUM 50 MG/5 ML VIAL IV ONE (09:38)
[2023-08-25] MEDS ORDERED: LIDOCAINE 2% MPF 5 ML VIAL ONE (09:38)
[2023-08-25] MEDS ORDERED: FENTANYL CITR 100 MCG/2 ML ONE ×2 (09:38→10:26)
[2023-08-25] MEDS: CEFAZOLIN SODIUM 2 GM/VIAL ONE (10:00)
[2023-08-25] MEDS: BUPIVACAINE 0.25% PF 30 ML VIAL ONE (10:30)
--- NOTE | 2023-08-25 12:32 | P.OP ---
Preoperative diagnosis: Bilateral Inguinal Hernias Postoperative diagnosis: Bilateral Inguinal Hernias Primary procedure: Open Bilateral Inguinal Hernia Repair with Mesh Anesthesia: GETA + Local Estimated blood loss: <5cc Specimen: None Findings: Bilateral Pantaloon, Direct / Indirect, Large Defect Complications: None Implants: Bard Perfix Large Plug and Patch Transferred to: Recovery Room Condition: Good
--- NOTE | 2023-08-25 13:02 | OP ---
Date of Procedure: 08/25/2023 Surgeon: Scot Jansen MD, Preoperative Diagnosis: Bilateral inguinal hernias. Postoperative Diagnosis: Bilateral inguinal hernias. Procedure Performed: Open bilateral inguinal hernia repair with mesh. Anesthesia: General endotracheal plus local with 0.25% Marcaine. Estimated Blood Loss: 5 cc. Specimen: None. Findings: Bilateral pantaloon direct/indirect inguinal hernias with large defects. External oblique aponeurosis found to be quite thin and friable in the central portion of this defect. Complications: None. Implant: Bard PerFix large plug and patch hernia repair systems bilaterally. Disposition: The patient transferred to recovery room in good condition. Procedure In Detail: After informed consent was obtained, patient was brought to the operating room, prepped and draped in the usual sterile fashion after adequate anesthesia was achieved. I premarked the patient for bilateral inguinal incisions. I then started on the left inguinal hernia region. I dissected down through Camper's fat and Janet fascia after making a skin incision with a 15 blade. I exposed the external oblique aponeurosis. It was found to be quite thin overlying the hernia defe ct. I opened it sharply using a 15 blade and opened the external oblique aponeurosis in its entirety using Metzenbaum scissors down to the deep inguinal ring. At this point, I encircled the spermatic cord structures with a Montrell drain, circumferentially dissected out a medial defect and noted a gloria y large direct inguinal hernia. In addition, there was a direct inguinal hernia in a pantaloon type orientation. At this point, I dissected back the hernia contents back to the preperitoneal space fro m the indirect hernia and imbricated the hernia sac, placing it back in the deep preperitoneal space. I then deployed a large Bard PerFix plug into this defect and secured it circumferentially around w ith good approximation of tissues. I then took the large hernia patch, secured it to the pubic tuber melody on the medial side and underside of the inguinal ligament and the internal oblique aponeurosis ci rcumferentially around covering the defect where the plug was placed as well, reconstituting the deep inguinal ring. All sutures up to this point were 2-0 PDS interrupted sutures. At this point, I irr igated the area copiously. I placed the patient in reverse Trendelenburg, gave him deep Valsalva and found no defects at this point and I palpated the area. At this point, the area was dried after ernestina ng copiously irrigated once again. The patient was positioned back in neutral position and I closed the external oblique aponeurosis using a running 3-0 Vicryl suture with good approximation of the tis sues. I then irrigated the area copiously and closed the deep dermal plane with interrupted 3-0 Vicr yl sutures and the skin was closed with a 4-0 Monocryl in a running fashion. Dermabond was placed ov er top. The patient tolerated the procedure without incident or complication, was transferred to PAC U in good condition. All counts were correct at end of the case. ALBARO/DAVI Voice ID: [id number] Report ID: [id number]
[2023-08-25] MEDS: HYDROCODONE/APAP 10/325 TAB ONE (14:29)
[2023-08-25 15:10] VITALS: BP 114/63; TEMP 97.1; O2SAT 99
== END 2023-08-25 15:00 | disposition home or self-care (01) ==
LOC: OR 08:30
PROVIDERS: ATTEND Surgery
PROC: 0YUA0JZ Supplement Bilateral Inguinal Region with Synthetic Substitute, Open Approach (ICD-10-PCS; principal; 2023-08-25 10:15)
DX: K40.20 Bilateral inguinal hernia, without obstruction or gangrene, not specified as recurrent (principal)
CPT/HCPCS: 85025; 80048; 36415; 49505; J2704; J2001; J2250; J3010 ×2; J1100; J2405; J7120